=== PATIENT | female | born 1980 | race Two or more races ===

== ENCOUNTER 2018-04-09 12:33 | Inpatient (IN) | payer MEDICAID ==
[~2018-04-09] VITALS: Ht 157.5 cm; Wt 67.6 kg
[2018-04-09 14:33] LABS: BASOPHILS % (AUTO) 0.2 % (0.0-2.0); EOSINOPHILS % (AUTO) 0.1 % (1.0-6.0); HEMATOCRIT 39.9 % (36-46); HEMOGLOBIN 13.6 g/dL (12.0-16.0); LYMPHOCYTES # (AUTO) 0.9 K/uL (1.0-4.8); LYMPHOCYTES % (AUTO) 4.9 % (22.0-44.0); MEAN CORPUSCULAR HEMOGLOBIN 30.6 pg (26.0-34.0); MEAN CORPUSCULAR VOLUME 90 fL (80-100); MONOCYTES # (AUTO) 1.2 K/uL (0.1-1.0); MONOCYTES % (AUTO) 6.5 % (2.0-9.0); NEUTROPHILS # (AUTO) 16.6 K/uL (1.8-7.7); PLATELET COUNT (AUTO) 267 K/uL (150-450); RED BLOOD CELL COUNT(AUTO) 4.44 MIL/uL (4.00-5.20); RED CELL DISTRIBUTION WIDTH 13.3 % (11.5-14.5)
[2018-04-09 15:08] LABS: ANION GAP 10 mmol/L (8-16); CALCIUM, TOTAL 9.1 mg/dL (8.8-10.5); CARBON DIOXIDE 25 mmol/L (22-29); CHLORIDE 100 mmol/L (98-107); CREATININE 0.67 mg/dL (0.60-1.30); GLOMERULAR FILTR. RATE CALC > 60 mL/min (>60); GLUCOSE,RANDOM 104 mg/dL (70-110); POTASSIUM 3.6 mmol/L (3.5-5.1); SODIUM SERUM 135 mmol/L (136-145); UREA NITROGEN, BLOOD 8 mg/dL (7-18)
[2018-04-09 15:10] LABS: APPEARANCE,URINE CLOUDY (CLEAR); BILIRUBIN,URINE NEGATIVE (NEGATIVE); GLUCOSE, URINE (UA) NEGATIVE (NEGATIVE); KETONES,URINE NEGATIVE (NEGATIVE); LEUKOCYTE ESTERASE ,URINE SMALL (NEGATIVE); NITRATE,URINE NEGATIVE (NEGATIVE); OCCULT BLOOD,URINE MODERATE (NEGATIVE); PH,URINE 5.5 (5.0-8.0); PROTEIN,URINE TRACE (NEGATIVE)
[2018-04-09 15:15] LABS: NEUTROPHILS % (AUTO) 88.3 % (40.0-70.0)
[2018-04-09] MEDS ORDERED: MORPHINE SULFATE 4 MG/ML SYRINGE IVP ONE ×2 (15:15→17:00)
[2018-04-09] MEDS ORDERED: ONDANSETRON HCL 4 MG/2 ML VIAL IVP ONE (15:15)
[2018-04-09] MEDS ORDERED: SODIUM CHLORIDE 0.9% 1,000 ML IV ONE ×3 (15:15→19:50)
[2018-04-09 15:18] LABS: ALANINE AMINOTRANSFERASE 31 U/L (12-78); ALBUMIN 3.7 g/dL (3.4-5.0); ALKALINE PHOSPHATASE 108 U/L (46-116); AMYLASE 30 U/L (25-115); ASPARTATE AMINOTRANSFERASE 18 U/L (15-37); BILIRUBIN,TOTAL 0.8 mg/dL (0.1-1.0); HCG,QUANTITATIVE < 1 mIU/mL (0-6); LIPASE 64 U/L (73-393); TOTAL PROTEIN, SERUM 8.3 g/dL (6.4-8.2)
[2018-04-09 15:21] LABS: BACTERIA,URINE None Seen /HPF (None Seen); RBC,URINE 0-2 /HPF (0-2); SQUAMOUS EPITHELIAL CELL,UR Moderate /LPF (None Seen)
[2018-04-09 15:23] LABS: INR 1.1 (0.9-1.1)
[2018-04-09] MEDS ORDERED: SODIUM CHLORIDE 0.9% 100 ML ONE (15:58)
[2018-04-09] MEDS ORDERED: IOVERSOL 320 MG/ML 100 ML VIAL ONE (15:58)
[2018-04-09 16:13] LABS: PLATELET MORPHOLOGY COMMENT NORMAL
[2018-04-09] MEDS: PIPERACILLIN/TAZO 3.375 GM/D5W 50 ML IV SCH ×2 (17:14→23:39)
[2018-04-09 18:43] VITALS: BP 122/60
[2018-04-09 19:13] VITALS: BP 95/63
[2018-04-09] MEDS ORDERED: BUPIVACAINE 0.25%/EPI 1:200,000/PF 10 ML VIAL ONE (19:50)
[2018-04-09] MEDS ORDERED: FentaNYL CITRATE-PF 100 MCG/2 ML VIAL IVP PRN (20:15)
[2018-04-09] MEDS ORDERED: HYDROmorphone 2 MG/ML SYRINGE IVP PRN (20:15)
[2018-04-09] MEDS ORDERED: RINGERS SOLUTION,LACTATED 1,000 ML IV ONE (20:15)
[2018-04-09] MEDS ORDERED: MEPERIDINE-PF 25 MG/ML VIAL IVP PRN (20:15)
[2018-04-09] MEDS ORDERED: HYDROCODONE/ACETAMINOPHEN 5-325 MG TABLET PO PRN ×2 (21:00→22:00)
[2018-04-09] MEDS ORDERED: ZOLPIDEM TARTRATE 5 MG TABLET PO PRN (22:00)
[2018-04-09] MEDS ORDERED: MAGNESIUM HYDROXIDE SUSPENSION 30 ML UDCUP PO PRN (22:00)
[2018-04-09] MEDS ORDERED: MORPHINE SULFATE 2 MG/ML SYRINGE IVP PRN (22:00)
[2018-04-09] MEDS ORDERED: ONDANSETRON HCL 4 MG/2 ML VIAL IVP PRN (22:00)
[2018-04-09] MEDS ORDERED: BISACODYL 10 MG RECTAL RECTAL SUPPOSITORY PR PRN (22:00)
[2018-04-09] MEDS ORDERED: ACETAMINOPHEN 325 MG TABLET PO PRN (22:00)
[2018-04-09 22:22] VITALS: BP 97/68
[2018-04-09] MEDS: HEPARIN SODIUM,PORCINE 5,000 UNITS/ML VIAL SQ SCH (23:38)
[2018-04-09 23:52] VITALS: BP 101/65
[2018-04-10 04:45] VITALS: BP 88/55
[2018-04-10] MEDS: PIPERACILLIN/TAZO 3.375 GM/D5W 50 ML IV SCH ×2 (04:57→11:37)
[2018-04-10] MEDS ORDERED: MIDAZOLAM HCL 2 MG/2 ML VIAL IVP ONE (05:11)
[2018-04-10] MEDS ORDERED: FentaNYL CITRATE-PF 100 MCG/2 ML VIAL IVP ONE (05:11)
[2018-04-10 06:31] LABS: BASOPHILS % (AUTO) 0.1 % (0.0-2.0); EOSINOPHILS % (AUTO) 0 % (1.0-6.0); HEMATOCRIT 34.3 % (36-46); HEMOGLOBIN 11.7 g/dL (12.0-16.0); LYMPHOCYTES # (AUTO) 0.6 K/uL (1.0-4.8); LYMPHOCYTES % (AUTO) 4.6 % (22.0-44.0); MEAN CORPUSCULAR HEMOGLOBIN 30.2 pg (26.0-34.0); MEAN CORPUSCULAR HGB CONC 34.1 G/dL (31.0-37.0); MEAN CORPUSCULAR VOLUME 89 fL (80-100); MONOCYTES # (AUTO) 0.4 K/uL (0.1-1.0); MONOCYTES % (AUTO) 2.9 % (2.0-9.0); NEUTROPHILS # (AUTO) 12.1 K/uL (1.8-7.7); PLATELET COUNT (AUTO) 249 K/uL (150-450); RED BLOOD CELL COUNT(AUTO) 3.88 MIL/uL (4.00-5.20); RED CELL DISTRIBUTION WIDTH 12.9 % (11.5-14.5)
[2018-04-10 06:32] LABS: NEUTROPHILS % (AUTO) 92.4 % (40.0-70.0)
[2018-04-10 07:16] LABS: ALANINE AMINOTRANSFERASE 25 U/L (12-78); ALKALINE PHOSPHATASE 88 U/L (46-116); ANION GAP 7 mmol/L (8-16); ASPARTATE AMINOTRANSFERASE 13 U/L (15-37); BILIRUBIN,TOTAL 0.6 mg/dL (0.1-1.0); CALCIUM, TOTAL 8.4 mg/dL (8.8-10.5); CARBON DIOXIDE 24 mmol/L (22-29); CHLORIDE 104 mmol/L (98-107); CREATININE 0.59 mg/dL (0.60-1.30); GLOMERULAR FILTR. RATE CALC > 60 mL/min (>60); GLUCOSE,RANDOM 120 mg/dL (70-110); SODIUM SERUM 135 mmol/L (136-145); UREA NITROGEN, BLOOD 7 mg/dL (7-18)
[2018-04-10 07:45] VITALS: BP 91/56
[2018-04-10] MEDS ORDERED: OXYGEN THERAPY IH SCH (08:00)
[2018-04-10] MEDS: HEPARIN SODIUM,PORCINE 5,000 UNITS/ML VIAL SQ SCH (08:54)
[2018-04-10] MEDS ORDERED: PANTOPRAZOLE SODIUM 40 MG DR TABLET PO SCH (09:00)
[2018-04-10] MEDS ORDERED: DOCUSATE SODIUM 100 MG CAPSULE PO SCH (09:00)
[2018-04-10 11:40] VITALS: BP 96/62
[2018-04-10] MEDS ORDERED: CIPR-278 PO (14:44)
[2018-04-10] MEDS ORDERED: METR500 PO (14:44)
[2018-04-10] MEDS ORDERED: HYDR-4061 PO (14:47)
[2018-04-10 15:18] VITALS: BP 95/58
== END 2018-04-10 18:00 | disposition home or self-care (01) | DRG 710 ==
LOC: EMS 12:34 → 6N 18:26
PROVIDERS: ADMIT Internal Medicine; ATTEND Internal Medicine
PROC: 0DTJ4ZZ Resection of Appendix, Percutaneous Endoscopic Approach (ICD-10-PCS; principal; 2018-04-09 19:46)
DX: A41.9 Sepsis, unspecified organism (principal); K35.80 Unspecified acute appendicitis; K59.00 Constipation, unspecified; Z83.3 Family history of diabetes mellitus
CPT/HCPCS: 74177; 87081; 88304; 96361; 96374; 96375; 96376; G0378; J1170; J1644; J2250; J2270; J2405; J2543; J3010; J3490; J7030; J7050; J7120